=== PATIENT | female | born 1950 | race Caucasian/White ===

== ENCOUNTER → 2016-05-31 | Outpatient (CLI) | payer OTHER ==
[~2016-05-31] MED LIST: ALENDRONATE SOD70 MG PO; ALORA1 EAC1 TD; BETA GLUCAN (1-31 GM PO; DIGESTIVE ENZY1 EACH PO; IBUPROFEN600 MG PO; LEVOTHYROXINE75 MCG PO; LOSARTAN POTASS50 MG PO; LOVASTATIN40 MG PO; MEGACE TAB 40 M40 MG PO; MULTIVITAMINS1 EAC1 PO; NORCO 5-325 TA1 EACH PO; PROBIOTIC1 EAC1 PO; PROGESTERONE MICRONI TD
== END ==
LOC: MAMO 10:50
DX: Z12.31 Encounter for screening mammogram for malignant neoplasm of breast (principal)
CPT/HCPCS: G0206

== ENCOUNTER → 2020-09-01 | Outpatient (CLI) | payer MEDICARE | LOC: MAMO 09:30 | DX: Z12.31 Encounter for screening mammogram for malignant neoplasm of breast (principal) | CPT/HCPCS: 77063; 77067 ==